=== PATIENT | male | born 1995 | race Caucasian/White ===

== ENCOUNTER 2023-02-24 14:30 | Emergency (ER) | payer MEDICAID ==
[~2023-02-24] VITALS: Ht 177.8 cm; Wt 72.7 kg
[2023-02-24 14:55] VITALS: BP 140/95
[2023-02-24] MEDS ORDERED: ONDA4TAB12 PO (15:28)
[2023-02-24] MEDS ORDERED: LORA-269 PO (15:28)
== END 2023-02-24 16:29 | disposition home or self-care (01) ==
LOC: ER 14:31
DX: F10.239 Alcohol dependence with withdrawal, unspecified (principal); Y90.9 Presence of alcohol in blood, level not specified
CPT/HCPCS: 99283